=== PATIENT | female | born 1985 | race Caucasian/White ===

== ENCOUNTER 2021-09-13 15:51 | Emergency (ER) | payer OTHER, SELFPAY ==
[2021-09-13 16:07] VITALS: BP 127/83; PULSE 108; RESP 16; TEMP 36.3; O2SAT 98
--- NOTE | 2021-09-13 16:07 | ED.SYNCOPE ---
HPI - Syncope General Chief Complaint: Syncope Stated Complaint: diabetic/passed out Time Seen by Provider: 09/13/21 16:07 Source: patient Mode of arrival: ambulatory History of Present Illness HPI narrative: 36-year-old female with diabetes mellitus, ovarian cyst presents to the ER with -- recurrent abdominal pain off and on for the past 1 month. She is diagnosed to have a 7 cm ovarian cyst. -- Elevated blood sugars -- syncopal spell. the patient had gone out for school shopping and was tired. While sitting in the car she passed out and was not arousable. She has had multiple episodes of passing out in the past. She had an extensive workup and was also admitted for these episodes. She did not have any focal neuro deficit. MD complaint: loss of consciousness Onset (ago): hour(s) ( 1 hour ago) Duration of episode: 2 -: minutes(s) Prodromal symptoms: none Witnessed: Yes - by Bystander Context: at rest Injuries sustained associated with event: none Current symptoms: abdominal pain Treatments prior to arrival: none Related Data Home Medications Medication Instructions Recorded Confirmed buspirone 15 mg tablet 15 mg PO BID 09/13/21 09/13/21 glipizide 5 mg tablet, extended 5 mg PO DAILY 09/13/21 09/13/21 release 24 hr insulin regular human 100 unit/mL 1 sliding scale dose subcut 09/13/21 09/13/21 injection solution (Humulin R USEASDIRECTD Regular U-100 Insulin) losartan 25 mg tablet 25 mg PO DAILY 09/13/21 09/13/21 Allergies Allergy/AdvReac Type Severity Reaction Status Date / Time Penicillins Allergy Anaphylactic Verified 09/13/21 16:15 Shock Review of Systems Review of Systems: All systems reviewed & are unremarkable except as noted in HPI and below Constitutional: Constitutional: Reports as per HPI and Reports no additional constitutional complaints Eyes: Eyes: Reports as per HPI and Reports no additional eye complaints ENT: Reports system reviewed and no additional complaints, except as documented and Reports as per HPI Cardiovascular: Cardiovascular: Reports as per HPI and Reports no additional cardiovascular complaints Respiratory: Respiratory: Reports as per HPI and Reports no additional respiratory complaints Gastrointestinal: Gastrointestinal: Reports as per HPI, Reports no additional gastrointestinal complaints and Reports abdominal pain Genitourinary: Genitourinary: Reports no additional female genitourinary complaints and Reports as per HPI Musculoskeletal: Musculoskeletal: Reports no additional musculoskeletal complaints and Reports as per HPI Integumentary/Breasts: Skin/Breast: Reports system reviewed and no additional complaints, except as docu and Reports as per HPI Neurologic: Reports system reviewed and no additional complaints, except as documented and Reports as per HPI Psychiatric: Psychiatric: Reports no additional psychiatric complaints and Reports as per HPI Endocrine: Endocrine: Reports no additional endocrine complaints and Reports as per HPI Hematologic/Lymphatic: Hematologic/Lymphatic: Reports no additional hematologic/lymphatic complaints and Reports as per HPI Allergic/Immunologic: Allergic/Immunologic: Reports no additional allergic/immunologic complaints and Reports as per HPI Exam Const: General: no acute distress Nutritional Appearance: well nourished Orientation/consciousness: patient oriented x3 Limitations: no limitations Other: not orthostatic HENMT: Head: normal to inspection Ears: external ears normal General nose exam: Normal external nose present Face and sinus: normal facial exam Mouth: Yes Normal oral and palatal mucosa present Throat: posterior oropharynx normal Eyes: Conjunctivae: conjunctivae normal Pupils: Equal, round and reactive pupils present EOM: EOMs intact bilaterally Direct Ophthalmoscopy: no photophobia Neck: Neck: normal visual inspection, no lymphadenopathy and no meningeal signs Chest: Chest palpation & inspection: n
--- NOTE | 2021-09-13 16:20 | PC.NURSE ---
patient's glucose of 262 using emergency id band.
--- NOTE | 2021-09-13 16:23 | ECG_ITS ---
Measurements Intervals [place] Rate: 98 P: 65 RI: 143 QRS: 46 QRSD: 78 T: 39 QT: 335 QTc: 428 Interpretive Statements SINUS RHYTHM WITH SINUS ARRHYTHMIA NORMAL ECG NO PREVIOUS ECG AVAILABLE FOR COMPARISON Electronically Signed On 09-14-2021 8:29:44 CDT by Juan Miner M.D.
[2021-09-13 16:45] VITALS: O2SAT 100
[2021-09-13 16:47] LABS: Basophils Absolute Auto 0.09 K/mm3 (0.00-0.10); Basophils Percent Auto 1.2 % (0.0-1.0); Eosinophils Absolute Auto 0.27 K/mm3 (0.02-0.50); Eosinophils Percent Auto 3.5 % (1.0-6.0); Hematocrit 42.5 % (35.0-49.0); Hemoglobin 14.4 g/dL (12.0-15.0); Immature Granulocyte Absolute 0.02 K/mm3 (0.00-0.00); Immature Granulocyte Percent A 0.3 % (0.0-0.0); Mean Corpuscular HGB Conc 33.9 g/dL (32.0-36.0); Mean Corpuscular Hemoglobin 27.7 pg (27.0-31.0); Mean Corpuscular Volume 81.7 fL (78.0-102.0); Monocytes Percent Auto 5.2 % (2.0-11.0); Neutrophils Absolute Auto 3.6 K/mm3 (1.7-7.2); Neutrophils Percent Auto 47.8 % (50.0-70.0); Platelet Count Result 340 K/mm3 (150-420); Red Cell Distribution Width 14.9 % (11.6-14.4); White Blood Count 7.6 K/mm3 (4.8-10.8)
[2021-09-13 17:04] LABS: Alanine Aminotransferase 130 U/L (14-59); Albumin Level 3.4 g/dL (3.4-5.0); Alkaline Phosphatase 84 U/L (46-116); Anion Gap 13 mmol/L (8-16); Aspartate Amino Transferase 142 U/L (15-37); Blood Urea Nitrogen 11 mg/dL (7-18); Calcium 8.5 mg/dL (8.5-10.1); Carbon Dioxide 23 mmol/L (21-32); Chloride 101 mmol/L (98-108); Estimated Glomerular Filt Rate > 60; Glucose 268 mg/dL (70-99); Osmolality Calculated 292 mOsm/kg (285-295); Sodium 137 mmol/L (136-145); Total Protein 7.3 g/dL (6.4-8.2); Troponin I 7.7 ng/L (0.00-60.4)
[2021-09-13 17:05] LABS: Lactic Acid Reflex < 0.3 mmol/L (0.4-2.0); Potassium 3.9 mmol/L (3.5-5.1)
[2021-09-13 17:06] LABS: Lipase 101 U/L (73-393)
[2021-09-13 17:26] LABS: Add Urine Microscopic? YES; Bilirubin Urine Negative (Negative); Blood Urine 2+ (Negative); Color Urine Yellow (Yellow); Glucose Urine UA 3+ (Negative); Ketones Urine 1+ (Negative); Leukocyte Esterase Ur Negative LEU/UL (Negative); Nitrate Urine Negative (Negative); Protein Urine Trace (Negative); Specific Grav Ur >= 1.030 (1.010-1.020); Urobilinogen Urine 0.2 mg/dL (0.2-1.0)
[2021-09-13] MEDS: HYDROcodone/acetaminophen (*CRX) 5-325 MG TABLET 1 TAB PO (17:40)
[2021-09-13 17:41] LABS: Appearance Urine Slightly Cloudy (Clear); Mucus Urine Moderate /lpf; Squamous Epithelial Cell Urine Many /hpf (Few)
[2021-09-13 17:42] LABS: Pregnancy On Board Control Positive; Urine Pregnancy Test Negative
[2021-09-13 18:28] VITALS: BP 123/77; PULSE 98; RESP 18; TEMP 36.4; O2SAT 99
== END 2021-09-13 18:31 | disposition home or self-care (01) ==
PROVIDERS: Emergency Provider Internal Medicine Critical Care Medicine; PCP Emergency Medicine
DX: R55 Syncope and collapse (principal); N83.209 Unspecified ovarian cyst, unspecified side; R10.9 Unspecified abdominal pain; E11.65 Type 2 diabetes mellitus with hyperglycemia
CPT/HCPCS: 36415; 80053; 81001; 81025; 82948; 83605; 83690; 84484; 85025; 93005; 99284; A9270